=== PATIENT | male | born 2000 ===

== ENCOUNTER 2021-09-28 08:48 | Emergency (ER) | payer SELFPAY ==
--- NOTE | 2021-09-28 09:51 | XRay Report ---
EXAMINATION: XR finger(s) 2+V RT, INDICATION / CLINICAL INFORMATION: injury rt thumb COMPARISON: None available. FINDINGS: BONES / JOINT(S): No acute fracture or subluxation. SOFT TISSUES: No significant abnormality. ADDITIONAL FINDINGS: None. IMPRESSION: No acute osseous findings. Signer Name: Nilo Pereira MD Signed: 09/28/2021 9:47 AM Workstation Name: [id number]
--- NOTE | 2021-09-28 12:02 | Emergency Department Report ---
ED Upper Extremity Inj HPI - General Chief Complaint: Extremity Injury, Upper Stated Complaint: FINGER INJURY Time Seen by Provider: 09/28/21 11:57 Source: patient Mode of arrival: Ambulatory Limitations: No Limitations - History of Present Illness Initial Comments: This is a 20-year-old male nontoxic, well nourished in appearance, no acute signs of distress presents to the ED with c/o of right thumb pain 1 day. Patient stated that he slammed finger against the door. Patient denies any other injuries or trauma. Patient denies any numbness, tingling, fever, chills, nausea, vomiting, chest pain, shortness of breath, headache, stiff neck. Patient denies any joint swelling or joint redness. Patient denies decreased range of motion. Patient denies any allergies or significant past medical history. MD Complaint: Injury to:: right, finger Other Extremity Injury: Fingers: Right Other Injuries: none Place: outdoors Severity scale (0 -10): 8 Improves With: none Worsens With: other (palpation) Associated Symptoms: denies other symptoms. denies: weakness, numbness, neck pain, suspects foreign body, nausea/vomiting, heard/felt popping sensat - Related Data Previous Rx's Medication Instructions Recorded Last Taken Type Naproxen 500 mg PO Q8H PRN #12 tab 09/28/21 Unknown Rx Allergies Allergy/AdvReac Type Severity Reaction Status Date / Time No Known Allergies Allergy Verified 09/28/21 09:06 ED Review of Systems ROS: Stated complaint: FINGER INJURY Other details as noted in HPI Comment: All other systems reviewed and negative Constitutional: denies: chills, fever Eyes: denies: eye pain, eye discharge, vision change ENT: denies: ear pain, throat pain Respiratory: denies: cough, shortness of breath, wheezing Cardiovascular: denies: chest pain, palpitations Endocrine: no symptoms reported Gastrointestinal: denies: abdominal pain, nausea, diarrhea Genitourinary: denies: urgency, dysuria Musculoskeletal: denies: back pain, joint swelling, arthralgia Skin: denies: rash, lesions Neurological: denies: headache, weakness, paresthesias Psychiatric: denies: anxiety, depression Hematological/Lymphatic: denies: easy bleeding, easy bruising ED Past Medical Hx - Past Medical History Previous Medical History?: No - Surgical History Past Surgical History?: No - Social History Smoking Status: Never Smoker - Medications Home Medications: Home Medications Medication Instructions Recorded Confirmed Last Taken Type Naproxen 500 mg PO Q8H PRN #12 tab 09/28/21 Unknown Rx ED Physical Exam - General Limitations: No Limitations General appearance: alert, in no apparent distress - Head Head exam: Present: atraumatic, normocephalic - Eye Eye exam: Present: normal appearance - Neck Neck exam: Present: full ROM - Respiratory Respiratory exam: Absent: respiratory distress - Cardiovascular Cardiovascular Exam: Present: regular rate - Extremities Exam Extremities exam: Present: full ROM, tenderness, normal capillary refill. Absent: joint swelling - Expanded Upper Extremity Exam Right Shoulder Exam: Present: normal inspection, full ROM. Absent: tenderness, swelling Upper Arm exam: Present: normal inspection, full ROM. Absent: tenderness, swelling Elbow exam: Present: normal inspection, full ROM. Absent: tenderness, swelling Forearm Wrist exam: Present: normal inspection, full ROM. Absent: tenderness, swelling Hand Wrist exam: Present: full ROM, tenderness, subungual hematoma (Right thumb). Absent: swelling, abrasion, laceration, ecchymosis, deformity, crepidus, dislocation, erythema, amputation, nail avulsion Vascular: Present: normal capillary refill. Absent: vascular compromise (Neurovascular within normal limits) - Back Exam Back exam: Present: normal inspection, full ROM - Neurological Exam Neurological exam: Present: alert, oriented X3, normal gait - Psychiatric Psychiatric exam: Present: normal affect, normal mood - Skin Skin exam: Present: warm, dry, intact, normal color. Absent: rash ED Course Vital Signs 09/28/21 09:03 Temperature 98.3 F Pulse Rate 73 Respiratory 14 Rate Blood Pressure 155/80 O2 Sat by Pulse 98 Oximetry - Reevaluation(s) Reevaluation #1: 09/28/21 12:00 Patient is speaking in full sentences with no signs of distress noted. - Procedure Description Procedures done: I used a small cautery to the nailbed to right thumb which had some bleeding came out. Patient stated symptoms are significantly improved. ED Medical Decision Making - Radiology Data [facility] [address] [place] [address] XRay Report Signed Patient: JOSE C WILLIAMSON MR#: [id number] : 2000 Acct:[id number] Age/Sex: 20 / M ADM Date: 09/28/21 Loc: ED Attending Dr: Ordering Physician: JERMAN WINTERS MD Date of Service: 09/28/21 Procedure(s): XR finger(s) 2+V RT Accession Number(s): [id number] cc: JERMAN WINTERS MD Fluoro Time In Minutes: EXAMINATION: XR finger(s) 2+V RT, INDICATION / CLINICAL INFORMATION: injury rt thumb COMPARISON: None available. FINDINGS: BONES / JOINT(S): No acute fracture or subluxation. SOFT TISSUES: No significant abnormality. ADDITIONAL FINDINGS: None. IMPRESSION: No acute osseous findings. Signer Name: Olivia Pereira MD Signed: 09/28/2021 9:47 AM Workstation Name: [email or web address] Transcribed By: MAXINE Dictated By: OLIVIA PEREIRA MD Electronically Authenticated By: OLIVIA PEREIRA MD Signed Date/Time: 09/28/21946 DD/ 5 TD/TT: - Medical Decision Making This is a 20-year-old male that presents with right finger injury. Patient is stable and was examined by me. X-ray has been obtained and dictated by the radiologist. Patient is notified of the x-ray report with noted by the patient. Patient was instructed to RICE therapy. Patient is discharged with Naproxen. At time of discharge, the patient does not seem toxic or ill in appearance. No acute signs of distress noted. Patient agrees to discharge treatment plan of care. No further questions noted by the patient. Critical care attestation.: If time is entered above; I have spent that time in minutes in the direct care of this critically ill patient, excluding procedure time. ED Disposition Clinical Impression: Injury of right thumb Qualifiers: Encounter type: initial encounter Qualified Code(s): S69.91XA - Unspecified injury of right wrist, hand and finger(s), initial encounter Subungual hematoma of right thumb Qualifiers: Encounter type: initial encounter Qualified Code(s): S60.111A - Contusion of right thumb with damage to nail, initial encounter Disposition: HOME / SELF CARE / HOMELESS Is pt being admited?: No Does the pt Need Aspirin: No Condition: Stable Instructions: Subungual Hematoma Additional Instructions: Follow-up with a orthopedic doctor in 3-5 days or if symptoms worsen and continue return to emergency room as soon as possible. Prescriptions: Naproxen 500 mg PO Q8H PRN #12 tab PRN Reason: Pain , Severe (7-10) Referrals: PRIMARY CARE, [Referring] - 3-5 Days RAHEEM CODY MD [Staff Physician] - 3-5 Days Forms: Work/School Release Form(ED) Time of Disposition: 12:04
[2021-09-28 13:18] VITALS: BP 145/87
== END 2021-09-30 17:11 | disposition home or self-care (01) ==
LOC: ED 08:48
DX: S60.111A Contusion of right thumb with damage to nail, initial encounter (principal); Z79.899 Other long term (current) drug therapy; W23.0XXA Caught, crushed, jammed, or pinched between moving objects, initial encounter; Y93.89 Activity, other specified; Y92.89 Other specified places as the place of occurrence of the external cause; Y99.8 Other external cause status
CPT/HCPCS: 99283